=== PATIENT | male | born 1965 | race Hispanic/Latino ===

== ENCOUNTER 2017-08-18 01:07 | Inpatient (IN) | payer MEDICARE, MEDICAID ==
[2017-08-18] MEDS ORDERED: diphenhydrAMINE 50 MG/ML VIAL ONE (01:34)
[2017-08-18] MEDS ORDERED: Famotidine/PF 20 mg/2ml Vial ONE (01:34)
[2017-08-18] MEDS ORDERED: predniSONE 20 MG TAB ONE (01:34)
[2017-08-18 01:55] LABS: #Eosinphils 0.2 thou/uL (0.0-0.7); #Lymphocytes 1.5 thou/uL (1.20-3.40); #Monocytes 0.6 thou/uL (0.11-0.59); #Neutrophils 3.4 thou/uL (1.40-6.50); %Basophils 0.6 % (0.0-1.0); %Eosinophils 3.3 % (0.0-10.0); %Lymphocytes 25.8 % (21.0-51.0); %Monocytes 9.9 % (0.0-10.0); Hematocrit 27.2 % (42.0-52.0); Mean Platelet Volume 9.1 fL (7.4-10.4); Red Blood Cell (RBC) Count 2.66 mill/uL (4.70-6.10); White Blood Cell (WBC) Count 5.7 thou/uL (4.8-10.8)
[2017-08-18 02:07] LABS: ALT (SGPT) 30 U/L (8-55); AST (SGOT) 34 U/L (5-34); Alkaline Phosphatase 212 U/L (40-150); Anion Gap 12 mmol/L (10-20); BUN (Urea Nitrogen) 14 mg/dL (8.4-25.7); Bilirubin, Total 1.8 mg/dL (0.2-1.2); Calc. Creatinine Clearance 0 mL/min (70-130); Calcium 9.1 mg/dL (7.8-10.44); Carbon Dioxide 23 mmol/L (22-29); Chloride 105 mmol/L (98-107); Estimated GFR-MDRD 65; Globulin 3.9 g/dL (2.4-3.5); Magnesium 1.6 mg/dL (1.6-2.6); Protein, Total 6.9 g/dL (6.0-8.3)
[2017-08-18 02:11] LABS: Troponin I Less than 0.010 ng/mL (< 0.028)
[2017-08-18 02:31] LABS: Lactic Acid - Sepsis 4.3 mmol/L (0.5-2.2)
[2017-08-18 02:58] LABS: Prothrombin Time 15.4 SEC (12.0-14.7)
[2017-08-18] MEDS ORDERED: Azithromycin 500 MG VIAL ONE (03:10)
[2017-08-18] MEDS ORDERED: Diabetic Tussin 200 MG/10 ML UDCUP PO PRN (04:48)
[2017-08-18] MEDS ORDERED: Nitroglycerin 0.4 MG TAB (25 Tab Bottle) SL PRN (04:48)
[2017-08-18] MEDS ORDERED: Mag-Al 1200 mg/1200 mg/30 ML UDCUP PO PRN (04:48)
[2017-08-18] MEDS ORDERED: hydrALAZINE 20 MG/ML VIAL SLOW IVP PRN (04:48)
[2017-08-18] MEDS ORDERED: Benzonatate 100 MG CAP PO PRN (04:48)
[2017-08-18] MEDS ORDERED: Calcium Carbonate 500 MG ChewTAB PO PRN (04:48)
[2017-08-18] MEDS ORDERED: Loratadine 10 MG TAB PO PRN (04:48)
[2017-08-18] MEDS ORDERED: Senokot 8.6 MG TAB PO PRN (04:48)
[2017-08-18] MEDS ORDERED: Ondansetron HCl/PF 4 MG/2 ML Vial IVP PRN (04:48)
[2017-08-18] MEDS ORDERED: cloNIDine 0.1 MG TAB PO PRN (04:48)
[2017-08-18] MEDS ORDERED: Dextrose 50% Abboject 50 ML SYRINGE SLOW IVP PRN (04:48)
[2017-08-18] MEDS ORDERED: Bisacodyl 5 MG TAB PO PRN (04:48)
[2017-08-18] MEDS ORDERED: HumaLOG 300 UNITS/3 ML VIAL SC PRN (04:48)
[2017-08-18] MEDS ORDERED: Dextrose 5% in Water 1,000 ML IV PRN (04:48)
[2017-08-18] MEDS ORDERED: diphenhydrAMINE 2% CREAM 28.4 GM TUBE TOP PRN (04:52)
[2017-08-18] MEDS ORDERED: diphenhydrAMINE 12.5 MG in Sodium Chloride 0.9% 50 ML IVPB PRN (04:52)
[2017-08-18] MEDS ORDERED: diphenhydrAMINE 50 MG/ML VIAL IVP SCH (05:00)
[2017-08-18] MEDS ORDERED: diphenhydrAMINE 50 MG/ML VIAL IVP PRN (05:15)
[2017-08-18 06:05] VITALS: BMI 31.6
[2017-08-18] MEDS: PROVENTIL INHALER 6.7 G (200 INHALATIONS) INH SCH ×3 (06:47→19:12)
--- NOTE | 2017-08-18 06:58 | HP ---
DATE OF ADMISSION: 08/18/2017 PRIMARY CARE PHYSICIAN: None. PRIMARY HUMAN SERVICES PROGRAM SPECIALIST: Dr. Arcadio Troncoso. CHIEF COMPLAINT: Facial numbness and sensation of closing of throat. HISTORY OF PRESENT ILLNESS: Mr. Nichols is a pleasant 52-year-old male with past medical history of liver cirrhosis as well as hypertension, diabetes, history of varices and chronic hepatitis C, statu s post treatment, who presented to the emergency room with above-mentioned complaint. History is amada nly obtained by the patient himself, though he is somewhat somnolent. He is able to provide most of the history and it is supplemented by his 2 daughters present in the room. According to Mr. Nichols, he has been having some cough for the last few days. Yesterday night, he took some Tessalon Perles and immediately 10 minutes after that, he started to feel that his whole fa ce is numb and his throat is closing up. He also felt that his tongue was swollen up and he started to have difficulty breathing. He reports that he has taken this medication in the past without any r eaction. He reported immediately to the emergency room. Upon presentation, his blood pressure was 182/94 with a pulse of 105. His oxygen saturation was 98% on room air. His initial workup did not reveal any significant oropharyngeal or throat swelling per the ER physician. He was found to be mildly jaundiced without any significant changes in his liver e nzymes. His EKG shows sinus tachycardia. However, his chest x-ray was consistent with right lower l obe infiltrates. Because of possible allergic reaction, he was given oral Benadryl as well as oral p rednisone 60 mg. He also received IV Benadryl and IV Pepcid. He was given antibiotics for the commu nity-acquired pneumonia. Later, his ammonia level came back elevated at 121 and the decision was mad e to admit this patient to telemetry floor. He also has evidence of lactic acid elevation at 4.3. A t this time, he is being admitted for hepatic encephalopathy as well as pneumonia and possible allerg ic reaction. He is currently hemodynamically stable and though he is able to answer the questions ap propriately, he is quite groggy. PAST MEDICAL HISTORY: 1. Chronic hepatitis C. The patient's daughter reports that he has finished treatment, which he too k for 3 months. He follows up with Dr. Arcadio Troncoso at the GI clinic and has been referred to clinic i [facility] for possible liver carcinoma. 2. History of liver cirrhosis. 3. Diabetes mellitus type 2 on oral hypoglycemics. 4. Hypertension. 5. Chronic low back pain. 6. History of Pozo's palsy, left side. PAST SURGICAL HISTORY: 1. Multiple back surgeries. 2. EGD and colonoscopy. ALLERGIES: LORTAB and TALWIN. FAMILY HISTORY: Multiple family members with diabetes. SOCIAL HISTORY: He currently lives with his daughter. He has no history of smoking, alcohol, or coty g abuse. He has past history of alcohol abuse, but he has quit drinking 8-9 years ago. HOME MEDICATIONS: Glucotrol-XL 10 mg in the morning, spironolactone 50 mg daily, quinapril 40 mg [place], ibuprofen 800 mg p.o. b.i.d., rifaximin 550 mg p.o. b.i.d., lactulose 15 mL p.o. b.i.d., Zofran a s needed, Lasix 20 mg p.o. b.i.d., Glucophage 1000 mg p.o. b.i.d., nadolol 40 mg daily, Harvoni 1 tab let p.o. daily and lubricant eyedrops. REVIEW OF SYSTEMS: The patient reports that he feels a little bit better in terms of his facial numb ness, but it is still there. He no longer has the sensation of shortness of breath or throat closing . LABORATORY DATA AND X-RAY FINDINGS: His CBC shows hemoglobin at 9.9 with 37.2 hematocrit. Macrocyto sis. Platelet count of 60, which seems to be chronic for him. His INR is 1.2. Serum chemistries un remarkable except for blood sugar of 217. Lactic acid 4.3. Total bilirubin 1.8 with alkaline phosph atase 212. His AST and ALT are within normal limits. Cardiac enzymes and BNP normal. Ammonia level is elevated at 121. Chest x-ray by my review consistent with right lower lobe infiltrates. A 12-le ad EKG by my review shows normal sinus rhythm without any acute ST changes. He has some T-wave inver burt in the inferior leads. PHYSICAL EXAMINATION: VITAL SIGNS: Upon presentation include blood pressure 182/94, pulse of 105, oxygen saturation 98% on room air, respirations 16, temperature 98.1. GENERAL: He appears somewhat jaundiced. He is somnolent, but easily arousable. He answers the ques tions appropriately and appeared nontoxic, in no respiratory distress. HEENT: Nystagmus noticed. No scleral icterus. Head is normocephalic, atraumatic. Pupils equal, re active to light and accommodation. Extraocular movements intact. NECK: Supple without any lymphadenopathy, JVD or bruit. CHEST: Clear to auscultation without any wheezing, rales or rhonchi. CARDIOVASCULAR: Rate and rhythm is regular without any murmur, rubs or gallops. ABDOMEN: Soft, nontender, nondistended. No guarding, rebound or rigidity. Hepatomegaly is palpated . EXTREMITIES: Showed trace pitting edema bilaterally in lower extremities. NEUROLOGIC: Asterixis is present, somnolence noticed. Otherwise, no gross focal neurological defici ts. SKIN: Slightly jaundiced without any rashes or bruises. Feels warm and dry to touch. PSYCHIATRIC: Normal affect. IMPRESSION AND PLAN: 1. Acute allergic reaction. It is unclear as to what is the inciting agent. The patient could have reacted to Tessalon, but also it is possible that he has a reaction to TAMMY inhibitors. At this time , we will stop both of these medications and continue oral steroids along with IV Pepcid and p.r.n. B enadryl. His symptoms have improved and he is hemodynamically stable without any airway compromise. He will be monitored on telemetry unit. 2. Community-acquired pneumonia. Continue with antibiotics as started by the emergency room. We wi ll use nebulizers as needed along with oxygen. Add inhalers on a scheduled basis along with incentiv e spirometry, and Mucinex. We will also screen him for influenza as he has not received his immuniza tions this year. 3. Hepatic encephalopathy. We will increase his lactulose to 4 times a day for now and titrate it t o 2-3 soft stools. We will repeat ammonia level in few hours. If his symptoms do not improve, we wi ll consult Gastroenterology for further recommendations. 4. Liver cirrhosis secondary to hepatitis C. We will continue to monitor his symptoms and restart h is home medications of Harvoni as well as rifaximin and lactulose. Continue nadolol as well as diure tics. 5. Diabetes mellitus type 2. We will hold his oral hypoglycemics for now and start him on insulin s liding scale. It is not clear if the patient will be able to eat properly given his somnolence. Myles id hypoglycemia. 6. Thrombocytopenia. This is secondary to chronic liver cirrhosis. We will avoid any pharmacologic al deep venous thrombosis prophylaxis. Monitor platelets. 7. Hypertension. We will restart his home medications as stated above including nadolol. Avoid lis inopril for now. Continue diuretics. Add p.r.n. antihypertensives. 8. Code status: Do not resuscitate. I have discussed this with the patient in front of his yonie rs and he is very clear that he does not want to be kept alive by artificial means. 9. Deep venous thrombosis and gastrointestinal prophylaxis in the form of sequential compression dev ices and in the form of IV Pepcid b.i.d. 10. P.r.n. medication order. DISPOSITION: The patient will be admitted to telemetry unit for treatment of pneumonia: Hepatic enc ephalopathy and possible allergic reaction. Estimated length of stay at this time is at least 2-3 mi dnight. Further management will depend upon his clinical course.
--- NOTE | 2017-08-18 07:54 | RAD ---
EXAM: ONE VIEW CHEST: HISTORY: Chest pain. COMPARISON: 01/14/15. FINDINGS: Portable semiupright chest demonstrates a large cardiac silhouette. The pulmonary vessels are slight ly prominent. Costophrenic angles are clear. Patchy interstitial opacities. No consolidation. No pneumothorax or osseous abnormalities. IMPRESSION: Pulmonary vascular prominence. Interstitial edema. POS: [facility]
[2017-08-18] MEDS ORDERED: LEDIPASVIR PO SCH (09:00)
[2017-08-18] MEDS ORDERED: SOFOSBUVIR PO SCH (09:00)
--- NOTE | 2017-08-18 09:16 | PDOC.PN ---
- Subjective Encounter Start Date: 08/18/17 Encounter Start Time: 09:15 Subjective: still tired, mouth improved - Objective MAR Reviewed: Yes Vital Signs & Weight: Vital Signs (12 hours) Temp Pulse Resp BP Pulse Ox 08/18/17 08:10 98.3 F 90 16 08/18/17 07:24 98.3 F 90 16 115/55 L 97 08/18/17 06:49 98 08/18/17 06:47 89 16 99 08/18/17 05:21 98.3 F 90 16 131/64 98 Weight Weight 208 lb 4.8 oz I&O: 08/17/17 08/18/17 08/19/17 06:59 06:59 06:59 Intake Total 120 Balance 120 Result Diagrams: 08/18/17 01:30 08/18/17 01:30 Additional Labs: Accuchecks 08/18/17 06:48 POC Glucose 168 H Phys Exam - Physical Examination Constitutional: NAD HEENT: PERRLA, moist MMs icteric sclera Neck: supple, full ROM Respiratory: no wheezing Cardiovascular: RRR Gastrointestinal: soft, positive bowel sounds Musculoskeletal: no edema Neurological: non-focal, moves all 4 limbs Psychiatric: normal affect, A&O x 3 Deviation from normal: somnolent Skin: no rash Dx/Plan (1) Allergic reaction caused by a drug Code(s): T78.40XA - ALLERGY, UNSPECIFIED, INITIAL ENCOUNTER Status: Acute (2) Chronic hepatitis C with hepatic coma Code(s): B18.2 - CHRONIC VIRAL HEPATITIS C Status: Acute (3) Cirrhosis Code(s): K74.60 - UNSPECIFIED CIRRHOSIS OF LIVER Status: Chronic (4) Increased ammonia level Code(s): R79.89 - OTHER SPECIFIED ABNORMAL FINDINGS OF BLOOD CHEMISTRY Status : Acute - Plan cont current plan of care improved, continue supportive care * .
[2017-08-18] MEDS: Famotidine 20 MG TAB PO SCH ×2 (09:52→21:32)
[2017-08-18] MEDS: Furosemide 20 MG TAB PO SCH ×2 (09:52→16:19)
[2017-08-18] MEDS: predniSONE 5 MG TAB PO SCH (09:52)
[2017-08-18] MEDS: guaiFENesin ER 600 MG TAB PO SCH ×2 (09:52→21:32)
[2017-08-18] MEDS: Rifaximin 550 MG TAB PO SCH ×2 (09:53→21:41)
[2017-08-18] MEDS: Spironolactone 25 MG TAB PO SCH (09:53)
[2017-08-18] MEDS: Nadolol 40 MG TAB PO SCH (09:58)
[2017-08-18] MEDS: HumaLOG 300 UNITS/3 ML VIAL SC PRN ×2 (12:55→17:27)
[2017-08-18] MEDS ORDERED: FLU VACC QS2017-18 36 mo. & older 0.5 ML SYRINGE IM ONE (21:00)
[2017-08-18] MEDS: cefTRIAXone\\ROCEPHIN 1 GM in Syringe 10 ML SLOW IVP SCH (22:27)
[2017-08-19] MEDS: Azithromycin 500 MG in Sodium Chloride 0.9% 250 ML 250 ML IVPB SCH ×2 (00:25→23:06)
[2017-08-19 05:46] LABS: Anion Gap 9 mmol/L (10-20); BUN (Urea Nitrogen) 17 mg/dL (8.4-25.7); Calc. Creatinine Clearance 95 mL/min (70-130); Calcium 8.6 mg/dL (7.8-10.44); Carbon Dioxide 25 mmol/L (22-29); Chloride 108 mmol/L (98-107); Estimated GFR-MDRD 63
[2017-08-19 05:51] LABS: #Basophils 0.1 thou/uL (0.0-0.2); #Eosinphils 0.3 thou/uL (0.0-0.7); #Lymphocytes 1.8 thou/uL (1.20-3.40); #Monocytes 0.7 thou/uL (0.11-0.59); #Neutrophils 6.4 thou/uL (1.40-6.50); %Basophils 0.7 % (0.0-1.0); %Eosinophils 2.9 % (0.0-10.0); %Lymphocytes 19.7 % (21.0-51.0); %Monocytes 7.6 % (0.0-10.0); Hematocrit 25.3 % (42.0-52.0); Mean Platelet Volume 9.8 fL (7.4-10.4); Red Blood Cell (RBC) Count 2.45 mill/uL (4.70-6.10); White Blood Cell (WBC) Count 9.3 thou/uL (4.8-10.8)
[2017-08-19] MEDS: HumaLOG 300 UNITS/3 ML VIAL SC PRN ×3 (06:58→17:32)
[2017-08-19] MEDS: PROVENTIL INHALER 6.7 G (200 INHALATIONS) INH SCH ×3 (07:51→18:44)
[2017-08-19] MEDS: predniSONE 5 MG TAB PO SCH (09:40)
[2017-08-19] MEDS: Spironolactone 25 MG TAB PO SCH (09:40)
[2017-08-19] MEDS: Nadolol 40 MG TAB PO SCH (09:41)
[2017-08-19] MEDS: guaiFENesin ER 600 MG TAB PO SCH ×2 (09:41→21:51)
[2017-08-19] MEDS: Rifaximin 550 MG TAB PO SCH ×2 (09:41→21:51)
[2017-08-19] MEDS: Furosemide 20 MG TAB PO SCH ×2 (09:41→15:13)
[2017-08-19] MEDS: Famotidine 20 MG TAB PO SCH ×2 (09:41→21:51)
--- NOTE | 2017-08-19 11:50 | PDOC.PN ---
- Subjective Encounter Start Date: 08/19/17 Encounter Start Time: 10:00 Subjective: feels better, is amb in room -: responds well to verbal questions -: no trouble swallowing or diff breathing - Objective Resuscitation Status: Resuscitation Status DNR:Do Not Resuscitate MAR Reviewed: Yes Vital Signs & Weight: Vital Signs (12 hours) Temp Pulse Resp BP Pulse Ox 08/19/17 08:00 98.2 F 68 12 97 08/19/17 07:51 68 12 08/19/17 07:40 98.2 F 68 16 128/70 97 08/19/17 04:00 98.3 F 73 16 100/58 L 96 08/19/17 00:00 98.1 F 79 16 109/56 L 99 Weight Weight 208 lb 4.8 oz I&O: 08/18/17 08/19/17 08/20/17 06:59 06:59 06:59 Intake Total 120 610 Balance 120 610 Result Diagrams: 08/19/17 04:35 08/19/17 04:35 Additional Labs: Accuchecks 08/19/17 08/18/17 08/18/17 06:12 21:18 17:03 POC Glucose 199 H 130 H 251 H 08/18/17 12:32 POC Glucose 286 H Phys Exam - Physical Examination HEENT: PERRLA, moist MMs Neck: no JVD, supple Respiratory: no wheezing, no rales Cardiovascular: RRR, no significant murmur Gastrointestinal: soft, non-tender, positive bowel sounds Musculoskeletal: no edema, pulses present Neurological: non-focal, moves all 4 limbs Dx/Plan (1) DM type 2 (diabetes mellitus, type 2) Status: Chronic Qualifiers: Diabetes mellitus complication status: with unspecified complications Diabetes mellitus termite exterminator helper insulin use: without termite exterminator helper use Qualified Code( s): E11.8 - Type 2 diabetes mellitus with unspecified complications (2) Chronic anemia Code(s): D64.9 - ANEMIA, UNSPECIFIED Status: Chronic (3) Allergic reaction caused by a drug Code(s): T78.40XA - ALLERGY, UNSPECIFIED, INITIAL ENCOUNTER Status: Acute Qualifiers: Encounter type: subsequent encounter Qualified Code(s): T78.40XD - Allergy , unspecified, subsequent encounter (4) Cirrhosis Code(s): K74.60 - UNSPECIFIED CIRRHOSIS OF LIVER Status: Chronic Qualifiers: Ascites presence: without ascites (5) Hepatitis C Code(s): B19.20 - UNSPECIFIED VIRAL HEPATITIS C WITHOUT HEPATIC COMA Status: Chronic Qualifiers: Viral hepatitis chronicity: chronic - Plan probably had mild hepatic encephalopathy which is clearing up now -: is on ceftr and zithromax for suspected right pna, its unclear as of now -: is on lasix, nadolol, prednisone, rifaximin, spironolactone -: dc plan in am * . Review of Systems - Medications/Allergies Allergies/Adverse Reactions: Allergies Allergy/AdvReac Type Severity Reaction Status Date / Time acetaminophen [From Lortab] Allergy Severe Verified 06/18/16 10:37 hydrocodone bitartrate Allergy Severe Verified 06/18/16 10:37 [From Lortab] pentazocine lactate Allergy Severe Verified 06/18/16 10:37 [From Talwin] benzonatate Allergy Intermediate Verified 08/18/17 05:29 [From Tessalon Perles] Medications: Current Medications Al Hydroxide/Mg Hydroxide (Maalox) 30 ml PO Q6H PRN PRN Reason: Heartburn or Indigestion Albuterol Sulfate (Proventil Hfa) 2 puff INH TID-RT [facility] Last Admin: 08/19/17 07:51 Dose: 2 puff Albuterol/Ipratropium (Duoneb) 3 ml NEB Q6H PRN PRN Reason: SOB &/or Wheezing Benzonatate (Tessalon) 100 mg PO Q4H PRN PRN Reason: Cough Bisacodyl (Dulcolax) 10 mg PO DAILYPRN PRN PRN Reason: Constipation Calcium Carbonate (Tums) 1,000 mg PO Q4H PRN PRN Reason: Heartburn or Indigestion Clobetasol Propionate (Temovate 0.05% Cream) 0 gm TOP BID [facility] Last Admin: 08/19/17 09:37 Dose: Not Given Clonidine (Catapres) 0.1 mg PO Q4H PRN PRN Reason: Systolic BP > 160 Dextrose/Water (Dextrose 50%) 25 gm SLOW IVP PRN PRN PRN Reason: Hypoglycemia Famotidine (Pepcid) 20 mg PO BID [facility] Last Admin: 08/19/17 09:41 Dose: 20 mg Furosemide (Lasix) 20 mg PO 0900,1600 [facility] Last Admin: 08/19/17 09:41 Dose: 20 mg Glucagon (Glucagon) 1 mg IM PRN PRN PRN Reason: Hypoglycemia Guaifenesin (Robitussin Sf) 200 mg PO Q4H PRN PRN Reason: Cough Guaifenesin (Mucinex) 600 mg PO Q12HR [facility] Last Admin: 08/19/17 09:41 Dose: 600 mg Hydralazine HCl (Apresoline) 10 mg SLOW IVP Q4H PRN PRN Reason: Systolic BP > 170 Azithromycin 500 mg/ Sodium (Chloride) 250 mls @ 250 mls/hr IVPB Q24HR [facility] Last Admin: 08/19/17 00:25 Dose: 250 mls Ceftriaxone Sodium 1 gm/ (Syringe) 10 mls @ 120 mls/hr SLOW IVP Q24HR@2300 [facility] Last Admin: 08/18/17 22:27 Dose: 10 mls Dextrose/Water (D5w) 1,000 mls @ 0 mls/hr IV .Q0M PRN; As Directed PRN Reason: Hypoglycemia Insulin Human Lispro (Humalog) 0 units SC .MODERATE SLIDING SC PRN PRN Reason: Moderate Correctional Scale Last Admin: 08/19/17 11:36 Dose: 6 unit Insulin Human Lispro (Humalog) 0 units SC .BEDTIME SLIDING SC PRN PRN Reason: Bedtime Correctional Scale Lactulose (Lactulose) 20 gm PO QID [facility] Last Admin: 08/19/17 09:40 Dose: 20 gm Loratadine (Claritin) 10 mg PO DAILYPRN PRN PRN Reason: Sinus Symptoms Nadolol (Corgard) 40 mg PO DAILY [facility] Last Admin: 08/19/17 09:41 Dose: 40 mg Nitroglycerin (Nitrostat) 0.4 mg SL Q5MIN PRN PRN Reason: Chest Pain Ledipasvir/Sofosbuvir [Harvoni] 1 Tablet 1 tablet PO DAILY [facility] Ondansetron HCl (Zofran) 4 mg IVP Q6H PRN PRN Reason: Nausea/Vomiting Last Admin: 08/18/17 16:20 Dose: 4 mg Prednisone (Prednisone) 10 mg PO QAM-WM [facility] Last Admin: 08/19/17 09:40 Dose: 10 mg Rifaximin (Xifaxan) 550 mg PO BID [facility] Last Admin: 08/19/17 09:41 Dose: 550 mg Senna (Senokot) 2 tab PO HSPRN PRN PRN Reason: Constipation Sodium Chloride (Flush - Normal Saline) 10 ml IVF Q12HR [facility] Last Admin: 08/19/17 09:40 Dose: 10 ml Sodium Chloride (Flush - Normal Saline) 10 ml IVF PRN PRN PRN Reason: Saline Flush Spironolactone (Aldactone) 50 mg PO DAILY [facility] Last Admin: 08/19/17 09:40 Dose: 50 mg Zinc Acetate/Diphenhydramine (Benadryl 2% Cream) 0 gm TOP QIDPRN PRN PRN Reason: Allergies
[2017-08-19] MEDS: cefTRIAXone\\ROCEPHIN 1 GM in Syringe 10 ML SLOW IVP SCH (22:58)
[2017-08-20 07:33] VITALS: BP 105/59
[2017-08-20] MEDS: PROVENTIL INHALER 6.7 G (200 INHALATIONS) INH SCH (07:34)
[2017-08-20] MEDS ORDERED: Furosemide 20 MG TAB PO SCH (09:00)
[2017-08-20] MEDS: Spironolactone 25 MG TAB PO SCH (09:33)
[2017-08-20] MEDS: Famotidine 20 MG TAB PO SCH (09:33)
[2017-08-20] MEDS: Rifaximin 550 MG TAB PO SCH (09:33)
[2017-08-20] MEDS: Nadolol 40 MG TAB PO SCH (09:33)
[2017-08-20] MEDS: predniSONE 5 MG TAB PO SCH (09:34)
[2017-08-20] MEDS: guaiFENesin ER 600 MG TAB PO SCH (09:34)
[2017-08-20 10:45] VITALS: TEMP 98.3
--- NOTE | 2017-08-20 13:00 | PDOC.PN ---
- Subjective Encounter Start Date: 08/20/17 Encounter Start Time: 07:20 Subjective: no sob, feels better -: is amb in room, oriented well - Objective Resuscitation Status: Resuscitation Status DNR:Do Not Resuscitate Vital Signs & Weight: Vital Signs (12 hours) Temp Pulse Resp BP Pulse Ox 08/20/17 09:32 98.3 F 08/20/17 07:34 71 14 98 08/20/17 07:00 66 16 105/59 L 98 08/20/17 04:00 96.4 F L 66 18 115/58 L 98 Weight Admit Weight 208 lb 4.8 oz Weight 187 lb I&O: 08/19/17 08/20/17 08/21/17 06:59 06:59 06:59 Intake Total 610 1058 Output Total 1200 Balance 610 -142 Result Diagrams: 08/19/17 04:35 08/19/17 04:35 Additional Labs: Accuchecks 08/20/17 08/19/17 08/19/17 05:51 20:01 16:32 POC Glucose 132 H 310 H 335 H 08/19/17 11:06 POC Glucose 287 H Phys Exam - Physical Examination HEENT: PERRLA, moist MMs Neck: no JVD, supple Respiratory: no wheezing, no rales Cardiovascular: RRR, no significant murmur Gastrointestinal: soft, non-tender, no distention, positive bowel sounds Musculoskeletal: no edema, pulses present Neurological: non-focal, moves all 4 limbs Psychiatric: A&O x 3 Dx/Plan (1) DM type 2 (diabetes mellitus, type 2) Status: Chronic Qualifiers: Diabetes mellitus complication status: with unspecified complications Diabetes mellitus longterm insulin use: without marine oil terminal superintendent use Qualified Code( s): E11.8 - Type 2 diabetes mellitus with unspecified complications (2) Chronic anemia Code(s): D64.9 - ANEMIA, UNSPECIFIED Status: Chronic (3) Allergic reaction caused by a drug Code(s): T78.40XA - ALLERGY, UNSPECIFIED, INITIAL ENCOUNTER Status: Acute Qualifiers: Encounter type: subsequent encounter Qualified Code(s): T78.40XD - Allergy , unspecified, subsequent encounter (4) Cirrhosis Code(s): K74.60 - UNSPECIFIED CIRRHOSIS OF LIVER Status: Chronic Qualifiers: Ascites presence: without ascites (5) Hepatitis C Code(s): B19.20 - UNSPECIFIED VIRAL HEPATITIS C WITHOUT HEPATIC COMA Status: Chronic Qualifiers: Viral hepatitis chronicity: chronic - Plan hemostable -: may dc home -: to f/u with in 1-2 weeks -: no signs of pna, no antiobiotics needed on discharge * .
--- NOTE | 2017-08-20 16:25 | DIS ---
DATE OF ADMISSION: 08/18/2017 DATE OF DISCHARGE: 08/20/2017 DISCHARGE DISPOSITION: To home. PRIMARY DISCHARGE DIAGNOSES: Possible allergic reaction, resolved; mild hepatic encephalopathy, resolved. SECONDARY DISCHARGE DIAGNOSES: Cirrhosis, hepatitis C, suspected liver cancer, diabetes mellitus type 2, chronic anemia. PROCEDURES DONE DURING HOSPITALIZATION: The patient has had a chest x-ray done on the day of admission, which showed mild interstitial edema. Blood cultures x2 no growth. Influenza A and B antigens were negative. H&H 9.3 and 25, platelet count 75, MCV is 104. INR 1.2. BNP 66. Ammonia levels were 121, total bilirubin 1.8, AST 34, ALT 30, alkaline phosphatase 212, albumin was 3.0. DISCHARGE MEDICATIONS: The patient to continue all his home medications as before including Lasix 20 mg twice daily, glipizide XL 10 mg daily, lactulose 15 mL p.o. twice daily, Harvoni 1 tablet daily, metformin 1000 mg twice daily, nadolol 40 mg daily, rifaximin 550 mg twice daily, spironolactone 50 mg daily. ALLERGIES: Allergic to ACETAMINOPHEN, HYDROCODONE, PENTAZOCINE, and BENZONATATE. DISCHARGE PLAN: The patient to follow up with Dr. Troncoso, candlemaking laborer, in 1-2 weeks. He also needs to follow up with his primary care physician in 1 week. BRIEF COURSE DURING HOSPITALIZATION: The patient initially came to ER with complaints of a sensation of closing of his throat with cough for the last few days. He took some Tessalon Perles and 10 minutes into it, he started feeling that his whole face is numb and his throat was closing up. He also felt like his tongue was swollen. In view of this apparent allergic reaction to TESSALON and elevation of his ammonia of 121, the patient was admitted to hospital. He was continued on his home medications. He was empirically placed on antibiotics initially for a suspicion for pneumonia, which has been ruled out. Twenty-four hours into hospitalization, the patient was completely oriented well. He is ambulating and eating well prior to discharge. He has no trouble swallowing or shortness of breath. He has been advised to follow up with Dr. Troncoso, his candlemaking laborer, in 1-2 weeks and primary care physician in 1 week. Please [facility]. [facility]
== END 2017-08-20 11:02 | disposition home or self-care (01) | DRG 916 ==
LOC: ERS 01:07 → 2SW 03:08 → 2NO 19:53
PROVIDERS: ADMIT Internal Medicine; ATTEND Internal Medicine
DX: T78.40XA Allergy, unspecified, initial encounter (principal); D69.6 Thrombocytopenia, unspecified; K74.60 Unspecified cirrhosis of liver; E11.9 Type 2 diabetes mellitus without complications; I10 Essential (primary) hypertension; D64.9 Anemia, unspecified; K72.90 Hepatic failure, unspecified without coma; T48.3X5A Adverse effect of antitussives, initial encounter; Y92.009 Unspecified place in unspecified non-institutional (private) residence as the place of occurrence of the external cause; B18.2 Chronic viral hepatitis C; Z79.84 Long term (current) use of oral hypoglycemic drugs; Z66 Do not resuscitate
CPT/HCPCS: 36415; 36416; 71010; 80048; 80053; 82140; 82553; 83605; 83735; 83880; 84484; 85025; 85610; 87040; 90471; 90682; 93005; 94664; 96361; 96365; 96375; A4216; G0008; J0456; J0696; J1200; J2405; J7050; J7506; Q2036; S0028

== ENCOUNTER 2019-01-24 14:55 | Emergency (ER) | payer MEDICARE, MEDICAID ==
[2019-01-24 15:45] LABS: #Basophils 0.1 thou/uL (0.0-0.2); #Eosinphils 0.2 thou/uL (0.0-0.7); #Lymphocytes 0.9 thou/uL (1.20-3.40); #Monocytes 0.5 thou/uL (0.11-0.59); #Neutrophils 5.3 thou/uL (1.40-6.50); %Basophils 0.8 % (0.0-1.0); %Eosinophils 2.3 % (0.0-10.0); %Lymphocytes 12.3 % (21.0-51.0); %Monocytes 7.6 % (0.0-10.0); Hemoglobin 9.3 g/dL (14.0-18.0); Mean Corpuscular HGB CONC 34.7 g/dL (32.0-36.0); Mean Corpuscular Hemoglobin 30.4 pg (27.0-31.0); Mean Corpuscular Volume 87.7 fL (78.0-98.0); Mean Platelet Volume 8.3 fL (7.4-10.4); Platelet Count 127 thou/uL (130-400); RBC Distribution Width 13.3 % (11.5-14.5); Red Blood Cell (RBC) Count 3.07 mill/uL (4.70-6.10); White Blood Cell (WBC) Count 6.9 thou/uL (4.8-10.8)
[2019-01-24 15:59] LABS: ALT (SGPT) 12 U/L (8-55); AST (SGOT) 20 U/L (5-34); Albumin 3.9 g/dL (3.5-5.0); Alkaline Phosphatase 86 U/L (40-150); Anion Gap 12 mmol/L (10-20); BUN (Urea Nitrogen) 28 mg/dL (8.4-25.7); Bilirubin, Total 0.6 mg/dL (0.2-1.2); CK (CPK) 38 U/L (30-200); Calc. Creatinine Clearance 0 mL/min (70-130); Calcium 9.2 mg/dL (7.8-10.44); Carbon Dioxide 20 mmol/L (22-29); Chloride 108 mmol/L (98-107); Estimated GFR-MDRD 55; Globulin 2.7 g/dL (2.4-3.5); Glucose 218 mg/dL (70-105); Lipase 18 U/L (8-78); Potassium 4.5 mmol/L (3.5-5.1); Protein, Total 6.6 g/dL (6.0-8.3); Sodium 135 mmol/L (136-145)
== END 2019-01-24 16:28 | disposition home or self-care (01) ==
LOC: ERS 14:55
DX: R79.89 Other specified abnormal findings of blood chemistry (principal); E11.9 Type 2 diabetes mellitus without complications; I10 Essential (primary) hypertension; Z79.899 Other long term (current) drug therapy; Z94.4 Liver transplant status
CPT/HCPCS: 36415; 80053; 82550; 83690; 83880; 84484; 85025; 93005

== ENCOUNTER 2021-02-03 09:38 | Outpatient (CLI) | payer MEDICARE, MEDICAID | END 2021-02-03 09:39 | disposition home or self-care (01) | LOC: BICMAMMO 09:38 | PROVIDERS: ATTEND Internal Medicine Transplant Hepatology | DX: Z13.820 Encounter for screening for osteoporosis (principal); B18.2 Chronic viral hepatitis C; Z94.4 Liver transplant status; M85.852 Other specified disorders of bone density and structure, left thigh; M85.851 Other specified disorders of bone density and structure, right thigh | CPT/HCPCS: 77080 ==